=== PATIENT | female | born 1985 | race Two or more races ===

== ENCOUNTER 2020-06-24 04:36 | Emergency (ER) | payer BC, OTHER ==
[2020-06-24 05:11] VITALS: BMI 21.9
--- NOTE | 2020-06-24 05:16 | PDOC ---
History of Present Illness - General Chief Complaint: Pain, Acute Stated Complaint: ABD PAIN/VAG BLEED Time Seen by Provider: 06/24/20 05:15 History Source: Patient Exam Limitations: No Limitations Past History - Medical History Allergies/Adverse Reactions: Allergies Allergy/AdvReac Type Severity Reaction Status Date / Time No Known Allergies Allergy Verified 06/24/20 05:11 Home Medications: Ambulatory Orders NK [No Known Home Medication] 06/24/20 - Reproductive History Is Patient Now?: No - Psycho-Social/Smoking History Smoking History: Never smoked Have you smoked in the past 12 months: No Information on smoking cessation initiated: No - Substance Abuse Hx (Audit-C & DAST Scrn) How often the patient has a drink containing alcohol: Never Score: In Men: 4 or > Positive; In Women: 3 or > Positive: 0 Screen Result (Pos requires Nsg. Audit-10AR): Negative In the last yr the pt used illegal drug/Rx for NonMed reason: No Score: Yes response is considered Positive: 0 Screen Result (Positive result requires Nsg. DAST-10): Negative *Physical Exam - Vital Signs Last Vital Signs Temp Pulse Resp BP Pulse Ox 98.5 F 71 20 102/72 100 06/24/20 05:09 06/24/20 05:09 06/24/20 05:09 06/24/20 05:09 06/24/20 05:09
--- NOTE | 2020-06-24 05:37 | PDOC ---
Attending Attestation - Resident Resident Name: Eduardo Tomas - HPI HPI: 06/24/20 06:12 Pt presents to the ED complaining of a one day history of dysuria and suprapubic pain, accompanied by nausea without vomiting. Denies fever. Denies vaginal bleeding or discharge. Also complaining of urinary urgency and frequency. - Physicial Exam PE: 06/24/20 06:29 Agree with resident exam. Patient is alert and oriented and in no acute di stress. Abdomen soft, non tender, non distended, without guarding or rebound. - Medical Decision Making 06/24/20 06:32 Pt presents to the ED complaining of dysuria and suprapubic pain without vomiting or fever. Most likely UTI--will check UA and reassess. Will check pelvic exam if UA is negative. Discharge - Discharge Information Problems reviewed: Yes Clinical Impression/Diagnosis: UTI (urinary tract infection) Qualifiers: Urinary tract infection type: site unspecified Hematuria presence: with hematuria Qualified Code(s): N39.0 - Urinary tract infection, site not specified Condition: Stable Disposition: HOME - Admission Yes - Additional Discharge Information Prescriptions: Cephalexin Monohydrate [Keflex -] 500 mg PO BID #10 capsule - Follow up/Referral Referrals: [facility] [place] [facility] [place] [Provider Group] - Patient Discharge Instructions Additional Instructions: You came into the ER blood in urine and pain with urination. In the ED, you were evaluated with blood work, urinalysis, and CT of your abdomen. Your urinalysis indicated that you have an urine infection. Your CT did not indicate any kidney stones. You do not appear to be an acute need for immediate hospitalization. You were advised to follow up with your primary care doctor within 1 week. You were given a prescription for Keflex 500mg. Take this two times a day. Come back to the ER immediately with any new or worsening concerns. Thank you for coming to the [facility] ER. We hope you feel better soon! - Post Discharge Activity
[2020-06-24] MEDS ORDERED: SODIUM CHLORIDE 0.9% 500 ML INFUS.BAG IV ONE (05:44)
--- NOTE | 2020-06-24 05:52 | PDOC ---
History of Present Illness - General Chief Complaint: Pain, Acute Stated Complaint: ABD PAIN/VAG BLEED Time Seen by Provider: 06/24/20 05:15 - History of Present Illness Initial Comments: 06/24/20 06:08 34 y/o F no significant medical hx, presents to the ED with 2 days of dysuia and increased urinary frequency. Pt reports associated hematuria and suprapubic pain when she urinates. She denies any fevers, chills, mausea, vomiting, diaarehea, bloody stools, vaginal bleeding,vaginal discharge, cva tenderness. PMHx: as noted above ROS: as noted SHx: Denies Etoh, IVDA, tobacco use Allergies: NKDA ROS: GENERAL/CONSTITUTIONAL: No fever or chills. No weakness. HEAD, EYES, EARS, NOSE AND THROAT: No change in vision. No ear pain or discharge. No sore throat. CARDIOVASCULAR: No chest pain or shortness of breath RESPIRATORY: No cough, wheezing, or hemoptysis. GASTROINTESTINAL: No nausea, vomiting, diarrhea or constipation. GENITOURINARY: No dysuria, frequency, or change in urination. MUSCULOSKELETAL: No joint or muscle swelling or pain. No neck or back pain. SKIN: No rash NEUROLOGIC: No headache, vertigo, loss of consciousness, or change in strength/sensation. ENDOCRINE: No increased thirst. No abnormal weight change HEMATOLOGIC/LYMPHATIC: No anemia, easy bleeding, or history of blood clots. ALLERGIC/IMMUNOLOGIC: No hives or skin allergy. PE: GENERAL: Awake, alert, and fully oriented, in no acute distress HEAD: No signs of trauma, normocephalic, atraumatic EYES: PERRLA, EOMI, sclera anicteric, conjunctiva clear ENT: Auricles normal inspection, hearing grossly normal, nares patent, oropharynx clear without exudates. Moist mucosa NECK: Normal ROM, supple, no lymphadenopathy, JVD, or masses LUNGS: No distress, speaks full sentences, clear to auscultation bilaterally HEART: Regular rate and rhythm, normal S1 and S2, no murmurs, rubs or gallops, peripheral pulses normal and equal bilaterally. ABDOMEN: Soft, suprapubic ttp, no cva tenderness normoactive bowel sounds. No guarding, no rebound. No masses EXTREMITIES : Normal inspection, Normal range of motion, no edema. No clubbing or cyanosis NEUROLOGICAL: Cranial nerves II through XII grossly intact. Normal speech, normal gait, no focal sensorimotor deficits SKIN: Warm, Dry, normal turgor, no rashes or lesions noted Past History - Medical History Allergies/Adverse Reactions: Allergies Allergy/AdvReac Type Severity Reaction Status Date / Time No Known Allergies Allergy Verified 06/24/20 05:11 Home Medications: Ambulatory Orders NK [No Known Home Medication] 06/24/20 - Reproductive History Is Patient Now?: No - Psycho-Social/Smoking History Smoking History: Never smoked Have you smoked in the past 12 months: No Information on smoking cessation initiated: No - Substance Abuse Hx (Audit-C & DAST Scrn) How often the patient has a drink containing alcohol: Never Score: In Men: 4 or > Positive; In Women: 3 or > Positive: 0 Screen Result (Pos requires Nsg. Audit-10AR): Negative In the last yr the pt used illegal drug/Rx for NonMed reason: No Score: Yes response is considered Positive: 0 Screen Result (Positive result requires Nsg. DAST-10): Negative *Physical Exam - Vital Signs Last Vital Signs Temp Pulse Resp BP Pulse Ox 98.5 F 71 20 102/72 100 06/24/20 05:09 06/24/20 05:09 06/24/20 05:09 06/24/20 05:09 06/24/20 05:09 ED Treatment Course - LABORATORY CBC & Chemistry Diagram: 06/24/20 05:30 06/24/20 05:30 Medical Decision Making - Medical Decision Making 06/24/20 06:11 34 y/o F no significant medical hx, presents to the ED with 2 days of dysuia and increased urinary frequency ddx; uti, gc labs, iv fluids, tylenol ua, urine culture. 06/24/20 06:39
[2020-06-24] MEDS ORDERED: ACETAMINOPHEN 1000 MG/100 ML VIAL (NON FORMULARY) IVPB ONE (06:07)
[2020-06-24] MEDS ORDERED: ACETAMINOPHEN INJECTION 100 ML IVPB ONE (06:12)
[2020-06-24 06:36] LABS: BASO % 0.2 % (0-2.0); EOS % 1.7 % (0-4.5); HEMATOCRIT 35.2 % (32.4-45.2); HEMOGLOBIN 11.9 GM/dL (10.7-15.3); LYMPH % 23.2 % (8-40); MCH 28.5 pg (25.7-33.7); MCHC 33.8 g/dl (32.0-36.0); MEAN CELL VOLUME 84.4 fl (80-96); MEAN PLT VOLUME 8.1 fl (7.5-11.1); MONO % 6.3 % (3.8-10.2); NEUT % 68.6 % (42.8-82.8); PLATELET COUNT 245 K/MM3 (134-434); RBC 4.17 M/mm3 (3.60-5.2); RDW 13.7 % (11.6-15.6); WHITE BLOOD COUNT 8.6 K/mm3 (4.0-10.0)
[2020-06-24 07:20] LABS: BLOOD UREA NITROGEN 10.4 mg/dL (7-18); CALCIUM 9.1 mg/dL (8.5-10.1); CREATININE 0.6 mg/dL (0.55-1.3); POTASSIUM 4.2 mmol/L (3.5-5.1)
--- NOTE | 2020-06-24 07:26 | PDOC ---
*Physical Exam - Vital Signs Last Vital Signs Temp Pulse Resp BP Pulse Ox 98.5 F 71 20 102/72 100 06/24/20 05:09 06/24/20 05:09 06/24/20 05:09 06/24/20 05:09 06/24/20 05:09 ED Treatment Course - LABORATORY CBC & Chemistry Diagram: 06/24/20 05:30 06/24/20 05:30 - ADDITIONAL ORDERS Additional order review: Laboratory Results 06/24/20 05:30 Sodium 140 Potassium 4.2 Chloride 107 Carbon Dioxide 27 Anion Gap 6 L BUN 10.4 Creatinine 0.6 Est GFR (CKD-EPI)AfAm 135.91 Est GFR (CKD-EPI)NonAf 117.26 Random Glucose 94 Calcium 9.1 06/24/20 05:30 RBC 4.17 MCV 84.4 MCHC 33.8 RDW 13.7 MPV 8.1 Neutrophils % 68.6 Lymphocytes % 23.2 Monocytes % 6.3 Eosinophils % 1.7 Basophils % 0.2 - Medications Given in the ED: ED Medications Discontinued Medications Generic Name Dose Route Start Last Admin Trade Name Freq PRN Reason Stop Dose Admin Acetaminophen 1,000 mg 06/24/20 06:07 06/24/20 06:15 Ofirmev Injection - IVPB 06/24/20 06:08 1,000 mg ONCE ONE Administration Sodium Chloride 1,000 ml 06/24/20 05:44 06/24/20 06:04 Normal Saline - IV 06/24/20 05:45 1,000 ml ONCE ONE Administration Medical Decision Making - Medical Decision Making 06/24/20 07:26 Pt signed out to me by day team - UTI vs G/C vs stone 34 y/o F no significant medical hx, presents to the ED with 2 days of dysuia and increased urinary frequency. pending labs, UA, confirm pharmacy Labs: no leukocytosis, no anemia, electrolytes WNL UA: bacteruria, 1+ LE, hematuria On re-assessment - L CVA tenderness, pt's last menstrual period was earlier in the month. Will order spiral CT CT: no evidence of hydronephrosis, renal masses, renal calculi on noncontrast study difficult to evaluate retroperitoneal region - can't exclude retroperitoneal lymphadenopathy Will send patient home with Keflex 500mg BID x5 days; will give first dose in ED. Patient stable for discharge. Informed of all lab and imaging results. Given follow up instructions and strict return precautions. Patient expressed understanding and agree to plan Disposition Discharge home Discharge - Discharge Information Problems reviewed: Yes Clinical Impression/Diagnosis: UTI (urinary tract infection) Qualifiers: Urinary tract infection type: site unspecified Hematuria presence: with hematuria Qualified Code(s): N39.0 - Urinary tract infection, site not specified Condition: Stable Disposition: HOME - Admission No - Additional Discharge Information Prescriptions: Cephalexin Monohydrate [Keflex -] 500 mg PO BID #10 capsule - Follow up/Referral Referrals: [facility] [place] [facility] [place] [Provider Group] - Patient Discharge Instructions Additional Instructions: You came into the ER blood in urine and pain with urination. In the ED, you were evaluated with blood work, urinalysis, and CT of your abdomen. Your urinalysis indicated that you have an urine infection. Your CT did not indicate any kidney stones. You do not appear to be an acute need for immediate hospitalization. You were advised to follow up with your primary care doctor within 1 week. You were given a prescription for Keflex 500mg. Take this two times a day. Come back to the ER immediately with any new or worsening concerns. Thank you for coming to the [facility] ER. We hope you feel better soon! - Post Discharge Activity
[2020-06-24 08:39] LABS: EPI CELLS 14 /uL (0-25.1); HYALINE CASTS 3 /uL (0-3.1); PH,URINE 5.5 (5.0-8.0); URINE APPEARANCE CLOUDY; URINE BACTERIA 1048 /uL (0-1359); URINE BILIRUBIN NEGATIVE (NEGATIVE); URINE COLOR YELLOW; URINE GLUCOSE (UA) NEGATIVE (NEGATIVE); URINE KETONE NEGATIVE (NEGATIVE); URINE LEUK ESTERASE 1+ (NEGATIVE); URINE NITRITE NEGATIVE (NEGATIVE); URINE PROTEIN 1+ (NEGATIVE); URINE RBC 2076 /uL (0-23.9); URINE UROBILINOGEN 0.2 mg/dL (0.2-1.0); URINE WBC 923 /uL (0-25.8)
[2020-06-24 09:03] VITALS: BP 94/57; PULSE 73; TEMP 98.1
[2020-06-24] MEDS ORDERED: CEPHALEXIN MONOHYDRATE 500 MG CAPSULE (UD) PO ONE (09:54)
[2020-06-24] MEDS ORDERED: CEPHALEXIN MONOHYDRATE 500 MG CAPSULE (UD) ONE (10:11)
== END 2020-06-24 10:22 | disposition home or self-care (01) ==
LOC: JER 04:36
PROC: 3E033NZ Introduction of Analgesics, Hypnotics, Sedatives into Peripheral Vein, Percutaneous Approach (ICD-10-PCS; principal; 2020-06-24)
DX: N39.0 Urinary tract infection, site not specified (principal); R31.0 Gross hematuria
CPT/HCPCS: 36415; 74176-TC; 80048; 81003; 84703; 85025; 87086; 87186; 87491; 87591; 99285-25; J0131